=== PATIENT | male | born 1985 ===

== ENCOUNTER 2018-11-19 02:41 | Emergency (ER) | payer OTHER ==
[~2018-11-19] VITALS: Ht 170.2 cm; Wt 90.7 kg
[~2018-11-19 02:41] MED LIST: BUCALSEP SPRAY30 ML PO; CEFTIN250 MG PO
[2018-11-19] MEDS ORDERED: LISINOPRIL10 MG (03:18)
[2018-11-19] MEDS ORDERED: SIMVASTATIN10 MG (03:18)
== END 2018-11-19 10:25 | disposition home or self-care (01) ==
LOC: ER 02:41
DX: R42 Dizziness and giddiness (principal)

== ENCOUNTER 2022-02-22 12:20 | Emergency (ER) | payer OTHER ==
[~2022-02-22] VITALS: Ht 170.2 cm; Wt 86.2 kg
[~2022-02-22 12:20] MED LIST changes: +LISINOPRIL10 MG; +SIMVASTATIN10 MG
== END 2022-02-22 18:50 | disposition home or self-care (01) ==
LOC: ER 12:20
DX: S90.01XA Contusion of right ankle, initial encounter (principal); V00.831A Fall from motorized mobility scooter, initial encounter; Y93.9 Activity, unspecified; Y92.89 Other specified places as the place of occurrence of the external cause; Y99.9 Unspecified external cause status; I10 Essential (primary) hypertension; Z88.0 Allergy status to penicillin; Z88.8 Allergy status to other drugs, medicaments and biological substances